=== PATIENT | female | born 1965 ===

== ENCOUNTER 2017-06-08 16:27 | Emergency (ER) | payer BC ==
--- NOTE | 2017-06-08 17:29 | UC ---
Bite Injury/Animal HPI - HPI Summary HPI Summary: 51 female presents with complains of right chest tick bite. - History of Current Complaint Stated Complaint: TICK Time Seen by Provider: 06/08/17 17:29 Hx Obtained From: Patient Severity Currently: Moderate Severity Initially: Moderate Onset/Duration: Sudden Onset - Allergies/Home Medications Allergies/Adverse Reactions: Allergies Allergy/AdvReac Type Severity Reaction Status Date / Time Penicillins Allergy Swelling Verified 06/08/17 17:38 Of Face,Lips,& Throat Home Medications: Home Medications ARIPiprazole TAB* [Abilify TAB*] 10 mg PO DAILY 06/08/17 [History Confirmed ] Baclofen TAB* [Lioresal TAB*] 10 mg PO TID PRN 06/08/17 [History Confirmed 06/08] Caffeine 200 mg PO DAILY 06/08/17 [History Confirmed 06/08/17] Citalopram TAB* [CeleXA TAB*] 10 mg PO DAILY 06/08/17 [History Confirmed ] Colchicine* [Colcrys*] 0.6 mg PO DAILY 06/08/17 [History Confirmed 06/08/17] Meloxicam [Mobic] 15 mg PO DAILY 06/08/17 [History Confirmed 06/08/17] Omeprazole CAP* [Prilosec CAP* 20 MG] 20 mg PO DAILY 06/08/17 [History Confirmed 06/08/17] PMH/Surg Hx/FS Hx/Imm Hx Previously Healthy: Yes Review of Systems Constitutional: Negative Skin: Rash, Other - tick bite Eyes: Negative ENT: Negative Respiratory: Negative Cardiovascular: Negative Gastrointestinal: Negative Genitourinary: Negative Motor: Negative Neurovascular: Negative Musculoskeletal: Negative Neurological: Negative Psychological: Negative All Other Systems Reviewed And Are Negative: Yes Physical Exam Triage Information Reviewed: Yes Vital Signs Reviewed: Yes Eye Exam: Normal ENT Exam: Normal Dental Exam: Normal Neck exam: Normal Neck: Positive: 1 Respiratory Exam: Normal Cardiovascular Exam: Normal Abdominal Exam: Normal Musculoskeletal Exam: Normal Neurological Exam: Normal Psychological Exam: Normal Skin: Positive: Other - tick bite Bite Injury Course/Dx - Differential Dx/Diagnosis Provider Diagnoses: rash. tick bite Discharge - Discharge Plan Condition: Stable Disposition: HOME Prescriptions: DOXYcycline CAP(*) [DOXYcycline 100MG CAP(*)] 200 mg PO DAILY #2 cap Patient Education Materials: Lyme Disease (ED), Tick Bite (ED) Referrals: Non Staff,Doctor [Medical Doctor] -
[2017-06-08 17:38] VITALS: BP 132/74
[2017-06-08 20:10] LABS: Hematocrit 41 % (35-47); Mean Corpuscular HGB Conc 34 g/dl (31-36); Mean Corpuscular Hemoglobin 32 pg (27-31); Mean Corpuscular Volume 94 fL (80-97); Mean Platelet Volume 8 um3 (7.4-10.4); Red Blood Count 4.42 10^6/ul (4.0-5.4); Red Cell Distribution Width 13 % (10.5-15)
[2017-06-08 20:26] LABS: Albumin 3.9 g/dL (3.2-5.2); BUN/Creatinine Ratio 44.4 (8-20); Calcium 9.1 mg/dL (8.6-10.3); EGFR African American 127.6 (>60); EGFR Non-African American 99.2 (>60); Globulin 2.4 g/dL (2-4); Potassium 4.1 mmol/L (3.5-5.0); Total Bilirubin 0.3 mg/dL (0.2-1.0); Total Protein 6.3 g/dL (6.4-8.9)
== END 2017-06-08 18:06 | disposition home or self-care (01) ==
LOC: UCCORT 16:27
DX: S20.361A Insect bite (nonvenomous) of right front wall of thorax, initial encounter (principal); W57.XXXA Bitten or stung by nonvenomous insect and other nonvenomous arthropods, initial encounter; Y93.9 Activity, unspecified; Y92.9 Unspecified place or not applicable; Y99.8 Other external cause status; R21 Rash and other nonspecific skin eruption; Z88.0 Allergy status to penicillin
CPT/HCPCS: 36415; 80053; 85025; 86618; 99202; G0463